=== PATIENT | female | born 1970 | race Caucasian/White ===

== ENCOUNTER → 2016-12-22 | Outpatient (CLI) | payer BC ==
--- NOTE | 2016-12-23 13:49 | MM ---
Reason for exam: screening (asymptomatic). Last mammogram was performed 1 year ago. History: Benign excisional biopsy of the right breast, June 2010. Took hormonal contraceptives for 4 years. Physical Findings: A clinical breast exam by your physician is recommended on an annual basis and results should be correlated with mammographic findings. MG 3D Screening Mammo W/Cad Bilateral CC and MLO view(s) were taken. Prior study comparison: December 11, 2015, bilateral MG 3d screening mammo w/cad. May 29, 2015, left breast MG diagnostic mammo LT w CAD. The breast tissue is extremely dense which could obscure a lesion on mammography. No significant changes when compared with prior studies. ASSESSMENT: Benign, BI-RAD 2 RECOMMENDATION: Routine screening mammogram of both breasts in 1 year.
== END ==
LOC: RADMAMWWP 08:41
PROVIDERS: ATTEND Obstetrics & Gynecology
DX: Z12.31 Encounter for screening mammogram for malignant neoplasm of breast (principal)
CPT/HCPCS: 77063; G0202

== ENCOUNTER → 2018-01-13 | Outpatient (CLI) | payer BC ==
--- NOTE | 2018-01-14 10:17 | MM ---
Reason for exam: screening (asymptomatic). Last mammogram was performed 1 year and 1 month ago. History: Benign excisional biopsy of the right breast, June 2010. Took hormonal contraceptives for 4 years. Physical Findings: A clinical breast exam by your physician is recommended on an annual basis and results should be correlated with mammographic findings. MG 3D Screening Mammo W/Cad Bilateral CC and MLO view(s) were taken. Prior study comparison: December 22, 2016, bilateral MG 3d screening mammo w/cad. December 11, 2015, bilateral MG 3d screening mammo w/cad. The breast tissue is heterogeneously dense. This may lower the sensitivity of mammography. Finding: Stable architectural distortion in the upper outer quadrant of the right breast consistent with known excisional biopsy. Previous mammotome biopsy in the right breast. There is a chronic nodularity in the left breast centrally. There is no discrete abnormality. ASSESSMENT: Benign, BI-RAD 2 RECOMMENDATION: Routine screening mammogram of both breasts in 1 year.
== END | disposition home or self-care (01) ==
LOC: RADMAMWWP 14:57
PROVIDERS: ATTEND Obstetrics & Gynecology
DX: Z12.31 Encounter for screening mammogram for malignant neoplasm of breast (principal)
CPT/HCPCS: 77063; 77067

== ENCOUNTER → 2019-03-15 | Outpatient (CLI) | payer BC ==
--- NOTE | 2019-03-15 08:55 | US ---
EXAMINATION TYPE: US transvaginal DATE OF EXAM: 03/15/2019 COMPARISON: NONE CLINICAL HISTORY: N94.10 Dyspareunia. Irregular menses x 1 year. Hx ablation 2001. Hx x 2 . TECHNIQUE: Transvaginal (TV). Date of LMP: 03/09/2019, G2G2 EXAM MEASUREMENTS: Uterus: 8.6 x 8.3 x 5.5 cm Endometrial Stripe: 0.5 cm Right Ovary: 2.4 x 1.6 x 1.3 cm Left Ovary: 2.4 x 1.3 x 1.1 cm 1. Uterus: Anteverted Right fibroid appearing lesion = 3.4 x 3.4 x 3.5 cm. In [place] at ar ea, fluid collection seen = 1.0 x 0.9 x 0.6 cm 2. Endometrium: Limited visualization due to ablation. 3. Right Ovary: wnl 4. Left Ovary: wnl 5. Bilateral Adnexa: Cystic appearing lesion seen in right adnexal region = 1.7 x 1.2 x 1.3 cm 6. Posterior cul-de-sac: No free fluid IMPRESSION: 1. Heterogenous uterine myometrium with at least one circumscribed leiomyoma measuring 3.5 cm appeari ng intramural. 2. Small 1.0 cm fluid collection in the lower uterine segment at the site of prior scar like ly represents a seroma. 3. Paraovarian simple appearing right adnexal cyst. 4. Endometrial thickness is upper limits of normal for postablation measured about 0.5 cm.
--- NOTE | 2019-03-17 14:58 | MM ---
Reason for exam: screening (asymptomatic). Last mammogram was performed 1 year and 2 months ago. History: Benign excisional biopsy of the right breast, June 2010. Took hormonal contraceptives for 4 years. Physical Findings: A clinical breast exam by your physician is recommended on an annual basis and results should be correlated with mammographic findings. MG 3D Screening Mammo W/Cad Bilateral CC and MLO view(s) were taken. Prior study comparison: January 13, 2018, bilateral MG 3d screening mammo w/cad. December 22, 2016, bilateral MG 3d screening mammo w/cad. The breast tissue is heterogeneously dense. This may lower the sensitivity of mammography. Benign appearing calcifications in the right breast. Skin metalic density seen on exam of 2018 only is no longer seen. ASSESSMENT: Benign, BI-RAD 2 RECOMMENDATION: Routine screening mammogram of both breasts in 1 year.
== END | disposition home or self-care (01) ==
LOC: RADMAMWWP 07:51
PROVIDERS: ATTEND Family Medicine
DX: Z12.31 Encounter for screening mammogram for malignant neoplasm of breast (principal); D25.9 Leiomyoma of uterus, unspecified
CPT/HCPCS: 76830; 77063; 77067

== ENCOUNTER → 2019-07-10 | Outpatient (CLI) | payer BC ==
[2019-07-10 12:16] LABS: Basophils # (A) 0.1 k/uL (0-0.2); Basophils % (A) 1 %; Eosinophils # (A) 0.2 k/uL (0-0.7); Eosinophils % (A) 4 %; HCT 41.3 % (34.0-46.0); HGB 13.2 gm/dL (11.4-16.0); Lymphocytes # (A) 1.2 k/uL (1.0-4.8); Lymphocytes % (A) 24 %; MCH 30.9 pg (25.0-35.0); MCHC 32.1 g/dL (31.0-37.0); MCV 96.4 fL (80.0-100.0); Mean Platelet Volume 6.7; Monocytes # (A) 0.3 k/uL (0-1.0); Monocytes % (A) 7 %; Neutrophils # (A) 3.2 k/uL (1.3-7.7); Neutrophils % (A) 63 %; Platelet Count 221 k/uL (150-450); RBC 4.28 m/uL (3.80-5.40); RDW 13.2 % (11.5-15.5); WBC 5.1 k/uL (3.8-10.6)
[2019-07-10 12:42] LABS: African American GFR (CKD) >90 (>60 ml/min/1.73 sqM); Anion Gap 9 mmol/L; Blood Urea Nitrogen 10 mg/dL (7-17); Carbon Dioxide 25 mmol/L (22-30); Chloride 105 mmol/L (98-107); Glucose 79 mg/dL (74-99); Non-African American GFR(CKD) >90 (>60 ml/min/1.73 sqM); Potassium 4.6 mmol/L (3.5-5.1); Sodium 139 mmol/L (137-145)
== END | disposition home or self-care (01) ==
LOC: LABPAT 11:11
PROVIDERS: ATTEND Obstetrics & Gynecology Obstetrics
DX: Z01.812 Encounter for preprocedural laboratory examination (principal); N93.9 Abnormal uterine and vaginal bleeding, unspecified; R10.2 Pelvic and perineal pain
CPT/HCPCS: 36415; 80051; 82565; 82947; 84520; 85025; 87086

== ENCOUNTER 2019-07-18 05:59 | Day surgery (SDC) | payer BC ==
[2019-07-11 16:15] VITALS: BMI 30.2
[~2019-07-18 05:59] MED LIST: MIDAZOLAM 2 MG/2 ML VIAL IV PRN
[2019-07-18] MEDS: LACTATED RINGERS 1,000 ML IV SCH ×2 (06:46→07:44)
[2019-07-18] MEDS ORDERED: LIDOCAINE 1% 20 ML VIAL (10MG/ML) FOR IV START INTRADERMA ONE ×2 (06:46→07:06)
[2019-07-18] MEDS: SCOPOLAMINE 1.5MG/72HR PATCH TRANSDERM ONE ×2 (07:17→20:12)
[2019-07-18] MEDS: ONDANSETRON 4 MG/2 ML VIAL IVP ONE ×2 (07:17→22:28)
[2019-07-18] MEDS: DEXAMETHASONE SOD PHOSPHATE 10 MG/ML 1 ML VIAL IV ONE ×2 (07:17→20:11)
[2019-07-18] MEDS ORDERED: MIDAZOLAM 2 MG/2 ML VIAL ONE (07:39)
[2019-07-18] MEDS ORDERED: LIDOCAINE 1% INJ 10MG/ML (20 ML MDV) ONE (07:39)
[2019-07-18] MEDS ORDERED: PROPOFOL 10 MG/ML 20 ML VIAL IV ONE (07:39)
[2019-07-18] MEDS ORDERED: NEOSTIGMINE 1 MG/ML 10 ML VIAL ONE (07:39)
[2019-07-18] MEDS ORDERED: fentaNYL (PF) 50 MCG/ML 2 ML AMP ONE (07:39)
[2019-07-18] MEDS ORDERED: ROCURONIUM BROMIDE 10 MG/ML 10 ML VIAL IV ONE (07:39)
[2019-07-18] MEDS ORDERED: ONDANSETRON 4 MG/2 ML VIAL ONE (07:39)
[2019-07-18] MEDS ORDERED: GLYCOPYRROLATE 0.2 MG/ML 2 ML VIAL ONE (07:39)
[2019-07-18] MEDS ORDERED: BUPIVACAINE (PF) 0.25% 30 ML VIAL SQ ONE (08:14)
[2019-07-18] MEDS: HYDROmorphone 0.5 MG/0.5 ML SYRINGE IVP PRN ×2 (09:55→10:02)
[2019-07-18] MEDS ORDERED: ACETAMINOPHEN IV (For NPO) 1,000 MG in EMPTY BAG 1 BAG IVPB ONE (10:06)
[2019-07-18] MEDS ORDERED: Acetaminophen-Codeine 300-30mg TAB PO PRN (10:06)
[2019-07-18] MEDS ORDERED: IBUPROFEN IV 800 MG in SODIUM CHLORIDE 0.9% 250 ML IV ONE (10:08)
--- NOTE | 2019-07-18 10:21 | P.OP ---
Date of Procedure: 07/18/19 Preoperative Diagnosis: menorrhagia, uterine fibroids, endometrioma Procedure(s) Performed: Robotic-assisted vaginal hysterotomy, diagnostic cystoscopy Anesthesia: NADERA Surgeon: Betzy Cook Petroleum Engineer #1: Loki Aldana Estimated Blood Loss (ml): 20 IV fluids (ml): 700 Urine output (ml): 350 Pathology: other (uterus fallopian tubes, ovary) Condition: stable Disposition: PACU Indications for Procedure: heavy menstrual bleeding uterine fibroid, endometrioma Operative Findings: enlarged globular uterus, normal ovaries b/l endometriosis noted in the posterior cul de sac Description of Procedure: Patient is seen in the preoperative area and informed consent is obtained and all questions are answered. Patient was taken back to the operating suite where general anesthesia was obtained without difficulty by the anesthesia department. She was then prepped and draped in the normal sterile fashion in the dorsal lithotomy position. Galeana catheter was then placed under sterile technique. A weighted speculum was placed in the posterior vaginal vault the anterior lip of the cervix is visualized and grasped with a single-tooth tenaculum. The cervix was then serially dilated and a Admaxim uterine manipulator was advanced without difficulty. All instrument removed from the patient's vaginal vault. Attention was then turned to the patient's abdomen where approximately 2 finger breaths above the umbilicus a small skin incision is made. Through this incision the Veress needles placed. Once the Veress needle was deemed to be in the appropriate position with a drop of CO2 pressure, CO2 insufflation was allowed to occur. Approximately 3 L of gas or used to obtain pneumoperitoneum, at this time the incision was elongated to 12 mm and a 12 mm trocar and sleeve with the laparoscope in place. The pneumoperitoneum under direct visualization. The above-noted findings were visualized. At this time the additional ports that were placed at 10 cm lateral and 3 cm inferior midline port 8 mm operative ports and the da Rachael machine. In the left upper quadrant a 12 mm trocar and sleeve is placed under direct visualization. Placement of the bipolar forceps is attention was then turned the patient's left adnexa the utero-ovarian ligament was visualized regular distally approximately divided. Prior to this the mesosalpinx had been coagulated and transected the fallopian tube was intact. Round ligament was then visualized and distally approximately divided hemostasis was appreciated. The bladder flap was then created using sharp and blunt dissection. At this time the descending branch the uterine artery was visualized coagulated distally and proximally and divided hemostasis was appreciated once again. Attention turned to the right adnexa the right uterine ovarian ligament was visualized coagulated distally approximately this continued through the broad and toward the round which was coagulated distally and proximally and divided. The right fallopian tube was taken in addition. The bladder flap on the right was then created using sharp and blunt dissection. The ascending branch of the uterine artery was then visualized on the right coagulated distally and proximally and divided. A Ray-Sweetie was then placed in the abdomen is means to further dissect the bladder away from the operating field. This was then removed. At this time the only remaining attachment was a vaginal attachment therefore colpotomy incision was made and circumference of fashion uterus and fallopian tubes were delivered through the vaginal opening. The pelvis was then copiously irrigated hemostasis was appreciated. The vaginal cuff was closed with 0 Vicryl in interrupted fashion. For sutures were used to obtain closure. FloSeal was then placed across the v aginal cuff. At this time all instruments removed from the patient's abdomen and the da Rachael was undocked in the usual fashion. Attention turned the patient's Galeana which was removed without difficulty. And a cystoscopy was performed. The cystoscope was placed through the urethra and toward the bladder bladder bubbles noted both ureteral orifices were spilling clear yellow urine. Patient tolerated procedure well all counts are correct 2 patient was awoken from general anesthesia and taken the recovery room in stable condition.
[2019-07-18] MEDS: Acetaminophen-Codeine 300-30mg TAB PO PRN ×2 (13:20→17:19)
[2019-07-18] MEDS: IBUPROFEN 600 MG TAB PO PRN (18:38)
[2019-07-18 20:53] VITALS: RESP 16
[2019-07-19] MEDS: IBUPROFEN 600 MG TAB PO PRN ×2 (04:23→11:27)
[2019-07-19] MEDS ORDERED: ENOXAPARIN 40 MG/0.4 ML SYRINGE SQ STA (07:52)
--- NOTE | 2019-07-19 08:00 | P.DS ---
Providers Date of admission: 07/18/2019 Expected date of discharge: 07/19/19 Attending physician: Betzy Cook Primary care physician: Gilberto Perry - Discharge Diagnosis(es) (1) Menorrhagia Current Visit: Yes Status: Acute (2) Dysmenorrhea Current Visit: Yes Status: Acute (3) Endometriosis Current Visit: Yes Status: Acute Hospital Course: This pleasant 48-year-old female presented yesterday for scheduled robotic-ass isted vaginal hysterectomy with diagnostic cystoscopy. Patient had an endometrial ablation done years ago and has noted increasing cyclic pelvic pain over the last few years worsening in nature. Patient desires definitive treatment and therefore robotic-assisted vaginal hysterectomy was scheduled. Ovarian conservation was discussed in detail and patient agreed. Patient was taken back to the operating suite and this surgery was performed without difficulty. Multiple endometriosis implants were noted posterior cul-de-sac. Cystoscopy was normal in nature. On this postop day #1 patient is feeling well she states her pain is well-controlled. The Galeana catheter was removed this morning and she is awaiting a void. She denies concerns and states she is ready for discharge home. Of note patient has a history of a DVT with a protein C abnormality therefore Lovenox 40 mg subcu daily will be given until she we can restart her eliquis. Patient Condition at Discharge: Good Plan - Discharge Summary Discharge Rx Participant: Yes New Discharge Prescriptions: No Action Rivaroxaban [Xarelto] 20 mg PO DAILY Discharge Medication List Rivaroxaban [Xarelto] 20 mg PO DAILY 07/11/19 [History] Follow up Appointment(s)/Referral(s): Betzy Cook DO [Doctor of Osteopathic Medicine] - 2 Weeks Patient Instructions/Handouts: Laparoscopic Hysterectomy (DC), Laparoscopic Hysterectomy (GEN) Activity/Diet/Wound Care/Special Instructions: No tub baths for 4 weeks, no intercourse for 6-8 weeks as instructed at postop appointment. Patient may experience vaginal bleeding after 2 weeks, this is a normal part of healing. Discharge Disposition: HOME SELF-CARE
[2019-07-19 10:02] VITALS: BP 113/72; PULSE 80; TEMP 98.2
[2019-07-19 11:00] LABS: Basophils % (A) 0 %; Eosinophils # (A) 0.1 k/uL (0-0.7); Eosinophils % (A) 1 %; HCT 34.7 % (34.0-46.0); HGB 11.8 gm/dL (11.4-16.0); Lymphocytes # (A) 1.8 k/uL (1.0-4.8); Lymphocytes % (A) 18 %; MCH 32.2 pg (25.0-35.0); MCHC 34.1 g/dL (31.0-37.0); MCV 94.5 fL (80.0-100.0); Mean Platelet Volume 6.1; Monocytes # (A) 0.5 k/uL (0-1.0); Monocytes % (A) 6 %; Neutrophils # (A) 7.1 k/uL (1.3-7.7); Neutrophils % (A) 74 %; Platelet Count 236 k/uL (150-450); RBC 3.67 m/uL (3.80-5.40); WBC 9.5 k/uL (3.8-10.6)
== END 2019-07-19 11:40 | disposition home or self-care (01) ==
LOC: OR 05:59 → 6PED 09:40 → OR 07-19 11:40
PROVIDERS: ATTEND Obstetrics & Gynecology Obstetrics
DX: D25.1 Intramural leiomyoma of uterus (principal); N80.0 Endometriosis of uterus; N72 Inflammatory disease of cervix uteri; N80.3 Endometriosis of pelvic peritoneum; N83.8 Other noninflammatory disorders of ovary, fallopian tube and broad ligament; Z79.01 Long term (current) use of anticoagulants; J45.909 Unspecified asthma, uncomplicated; D68.59 Other primary thrombophilia; Z98.891 History of uterine scar from previous surgery; Z98.890 Other specified postprocedural states; Z91.040 Latex allergy status; Z82.49 Family history of ischemic heart disease and other diseases of the circulatory system; Z86.718 Personal history of other venous thrombosis and embolism; Z86.711 Personal history of pulmonary embolism
CPT/HCPCS: 81025; 85025; 86850; 86900; 86901; 88307

== ENCOUNTER → 2020-04-12 | Outpatient (CLI) | payer BC ==
--- NOTE | 2020-04-16 07:15 | MM ---
Reason for exam: screening (asymptomatic). Last mammogram was performed 1 year and 1 month ago. History: Benign excisional biopsy of the right breast, June 2010. Took hormonal contraceptives for 4 years. Physical Findings: A clinical breast exam by your physician is recommended on an annual basis and results should be correlated with mammographic findings. MG 3D Screening Mammo W/Cad Bilateral CC and MLO view(s) were taken. Prior study comparison: March 15, 2019, bilateral MG 3d screening mammo w/cad. January 13, 2018, bilateral MG 3d screening mammo w/cad. The breast tissue is heterogeneously dense. This may lower the sensitivity of mammography. Benign appearing calcifications in the right breast. No significant changes when compared with prior studies. ASSESSMENT: Benign, BI-RAD 2 RECOMMENDATION: Routine screening mammogram of both breasts in 1 year.
== END | disposition home or self-care (01) ==
LOC: RADMAMWWP 16:07
PROVIDERS: ATTEND Obstetrics & Gynecology Obstetrics
DX: Z12.31 Encounter for screening mammogram for malignant neoplasm of breast (principal)
CPT/HCPCS: 77063; 77067

== ENCOUNTER → 2021-02-14 | Outpatient (CLI) | payer BC ==
--- NOTE | 2021-02-14 08:57 | US ---
EXAMINATION TYPE: US abdomen complete DATE OF EXAM: 02/14/2021 COMPARISON: NONE CLINICAL HISTORY: R11.0 Nausea. Pt states nausea on/off x 1 year EXAM MEASUREMENTS: Liver Length: 15.4 cm Gallbladder Wall: 0.2 cm CBD: 0.4 cm Spleen: 11.0 cm Right Kidney: 9.9 x 3.9 x 4.4 cm Left Kidney: 10.5 x 4.4 x 4.7 cm Pancreas: Partially obscured by overlying bowel gas Liver: Visualized portions appeared wnl partially obscured. Gallbladder: wnl Evidence for sonographic Perkins's sign: No CBD: wnl Spleen: wnl Right Kidney: wnl, lower pole obscured due to overlying bowel gas Left Kidney: wnl, lower pole obscured due to overlying bowel gas Upper IVC: wnl Abd Aorta: wnl IMPRESSION: 1. The lower poles of the kidneys are poorly visualized due to overlying bowel gas. No definite evide nce of renal calculi or hydronephrosis. 2. No gallstones. No sludge or pericholecystic fluid. Gallbladder wall is within normal limits. 3. Visualized portions of the liver are unremarkable. The liver is partially obscured. 4. The pancreas is partially obscured due to overlying bowel gas.
== END | disposition home or self-care (01) ==
LOC: RADUSWWP 06:58
PROVIDERS: ATTEND Family Medicine
DX: R11.0 Nausea (principal)
CPT/HCPCS: 76700

== ENCOUNTER 2021-05-07 09:16 | Day surgery (SDC) | payer BC ==
[2021-05-02 10:46] VITALS: BMI 30.4
[~2021-05-07 09:16] MED LIST changes: +LACTATED RINGERS 1,000 ML IV SCH; -MIDAZOLAM 2 MG/2 ML VIAL IV PRN
[2021-05-07 09:55] VITALS: TEMP 97.7
[2021-05-07] MEDS ORDERED: LIDOCAINE 1% INJ 10MG/ML (20 ML MDV) ONE (10:25)
[2021-05-07] MEDS ORDERED: PROPOFOL 10 MG/ML 20 ML VIAL IV ONE (10:25)
--- NOTE | 2021-05-07 10:49 | P.PCN ---
Date of Procedure: 05/07/21 Procedure(s) Performed: Brief history: Patient is a pleasant 50-year-old pleasant white female scheduled for an elective upper endoscopy as well as colonoscopy as a part of evaluation of chronic nausea vomiting for the last 2 months duration. Also has prior history of colon polyps. Procedure performed: Esophagogastroduodenoscopy with biopsy Colonoscopy Preoperative diagnosis: Chronic nausea vomiting of 2 months duration History of colon polyps Anesthesia: MAC Procedure: After informed consent was obtained from the patient was brought into the endoscopy unit and IV sedation was administered by anesthesia under continuous monitoring. Initially upper endoscopy was done. The Olympus GF 160 video endoscope was inserted inserted into the mouth and esophagus intubated without any difficulty and was gradually advanced into the stomach and duodenum and carefully examined. The bulb and second part of the duodenum appeared normal. Biopsies were done from the duodenum to rule out celiac disease. The scope was then withdrawn into the stomach adequately insufflated with air and upon careful examination the antrum had mild gastritis and biopsies were done from this area. The body, cardia and fundus appeared normal. The scope was then withdrawn into the esophagus. The GE junction was located at 40 cm to the incisors. It appeared regular with no erythema erosions or ulcerations. Rest of the esophagus appeared normal. as his were done from the distal esophagus. Patient tolerated the procedure well. At this time the patient continued to remain sedation. Initial digital rectal examination was normal. Olympus CF 160 video colonoscope was then inserted into the rectum and gradually advanced to the cecum without any difficulty. Careful examination was performed as the scope was gradually being withdrawn. The prep was excellent. The cecum, ascending colon, transverse colon, descending colon, sigmoid colon and rectum appeared normal. scattered sigmoid diverticulosis. Retroflexion was performed in the rectum and no lesions were noted. Patient tolerated the procedure well. Impression: 1. Upper endoscopy revealed mild antral gastritis but no evidence of esophagitis or peptic ulcer 2. Colonoscopy is within normal limits with no evidence of colitis or color ectal neoplasia.. Scattered sigmoid diverticulosis Recommendations: Findings of this examination were discussed with the patient as well as her family. She was advised to follow with the biopsy results. She can have a repeat colonoscopy in 10 years.]
[2021-05-07 10:53] VITALS: PULSE 66; RESP 16
[2021-05-07 11:06] VITALS: BP 105/69
== END 2021-05-07 11:34 | disposition home or self-care (01) ==
LOC: ORWHC2ENDO 09:16
PROVIDERS: ATTEND Internal Medicine Gastroenterology
DX: K29.50 Unspecified chronic gastritis without bleeding (principal); K57.30 Diverticulosis of large intestine without perforation or abscess without bleeding; K20.90 Esophagitis, unspecified without bleeding; Z86.010 Personal history of colon polyps; Z79.01 Long term (current) use of anticoagulants; Z91.040 Latex allergy status
CPT/HCPCS: 45378; 43239; 88305; J2001; J2704

== ENCOUNTER → 2021-08-13 | Outpatient (CLI) | payer BC ==
--- NOTE | 2021-08-18 10:57 | MM ---
Reason for exam: screening (asymptomatic). Last mammogram was performed 1 year and 4 months ago. History: Benign excisional biopsy of the right breast, June 2010. Took hormonal contraceptives for 4 years. Physical Findings: A clinical breast exam by your physician is recommended on an annual basis and results should be correlated with mammographic findings. MG 3D Screening Mammo W/Cad Bilateral CC and MLO view(s) were taken. Prior study comparison: April 12, 2020, bilateral MG 3d screening mammo w/cad. March 15, 2019, bilateral MG 3d screening mammo w/cad. The breast tissue is heterogeneously dense. This may lower the sensitivity of mammography. Post excisional changes n the right. No significant changes when compared with prior studies. ASSESSMENT: Benign, BI-RAD 2 RECOMMENDATION: Routine screening mammogram of both breasts in 1 year.
== END | disposition home or self-care (01) ==
LOC: RADMAMWWP 07:16
PROVIDERS: ATTEND Obstetrics & Gynecology
DX: Z12.31 Encounter for screening mammogram for malignant neoplasm of breast (principal)
CPT/HCPCS: 77063; 77067

== ENCOUNTER → 2022-08-31 | Outpatient (CLI) | payer BC ==
--- NOTE | 2022-09-01 08:42 | MM ---
Reason for Exam: Screening (asymptomatic). Last mammogram was performed 1 year(s) and 1 month(s) ago. Patient History: Menarche at age 13. First Full-Term at age 22. Hysterectomy at age 48. Patient used Hormonal Contraceptives for 4 years. 06/2010, Benign Excisional Biopsy on the right side. Risk Values: Dina 5 year model risk: 1.1%. NCI Lifetime model risk: 9.3%. Prior Study Comparison: 03/15/2019 Bilateral Screening Mammogram, [facility]. 04/12/2020 Bilateral Screening Mammogram, [facility]. 08/13/2021 Bilateral Screening Mammogram, [facility]. Tissue Density: The breast tissue is heterogeneously dense. This may lower the sensitivity of mammography. Findings: Analyzed By CAD. There is no suspicious group of microcalcifications or new suspicious mass in either breast. Postexcisional changes in the right breast. Overall Assessment: Benign, BI-RAD 2 Management: Screening Mammogram of both breasts in 1 year. A clinical breast exam by your physician is recommended on an annual basis and results should be correlated with mammographic findings. Electronically signed and approved by: Austyn Grijalva D.O.
== END | disposition home or self-care (01) ==
LOC: RADMAMWWP 07:37
PROVIDERS: ATTEND Obstetrics & Gynecology Obstetrics
DX: Z12.31 Encounter for screening mammogram for malignant neoplasm of breast (principal); Z98.890 Other specified postprocedural states
CPT/HCPCS: 77063; 77067

== ENCOUNTER → 2023-05-26 | Outpatient (CLI) | payer BC ==
--- NOTE | 2023-05-26 12:17 | XR ---
EXAMINATION TYPE: XR chest 2V DATE OF EXAM: 05/26/2023 COMPARISON: NONE TECHNIQUE: PA and lateral views submitted. HISTORY: Cough FINDINGS: The lungs are clear and there is no pneumothorax, pleural effusion, or focal pneumonia. Heart size normal and no overt failure. Osseous structures demonstrate hypertrophic and degenerative changes of the spine. IMPRESSION: 1. No acute process.
== END | disposition home or self-care (01) ==
LOC: RADXRMAIN 11:46
PROVIDERS: ATTEND Family Medicine
DX: R05.9 Cough, unspecified (principal)
CPT/HCPCS: 71046

== ENCOUNTER 2023-05-28 21:27 | Emergency (ER) | payer BC ==
[2023-05-28 21:50] VITALS: TEMP 98.7
[2023-05-28 22:11] LABS: Basophils % (A) 0 %; Eosinophils # (A) 0.1 k/uL (0-0.7); Eosinophils % (A) 1 %; HCT 40.6 % (34.0-46.0); HGB 13.6 gm/dL (11.4-16.0); Lymphocytes % (A) 8 %; MCH 30.8 pg (25.0-35.0); MCHC 33.5 g/dL (31.0-37.0); Mean Platelet Volume 8.3; Monocytes # (A) 0.5 k/uL (0-1.0); Monocytes % (A) 5 %; Neutrophils # (A) 10.2 k/uL (1.3-7.7); Neutrophils % (A) 86 %; Platelet Count 210 k/uL (150-450); RBC 4.41 m/uL (3.80-5.40); RDW 13.2 % (11.5-15.5); WBC 11.9 k/uL (3.8-10.6)
[2023-05-28 22:21] LABS: INR 1.1 (<1.2); Partial Thromboplastin Time 23.3 sec (22.0-30.0)
[2023-05-28 22:24] LABS: ALT 30 U/L (4-34); AST 30 U/L (14-36); African American GFR (CKD) >90 (>60 ml/min/1.73 sqM); Alkaline Phosphatase 66 U/L (38-126); Anion Gap 12 mmol/L; Blood Urea Nitrogen 15 mg/dL (7-17); Carbon Dioxide 18 mmol/L (22-30); Chloride 105 mmol/L (98-107); Glucose 125 mg/dL (74-99); Non-African American GFR(CKD) >90 (>60 ml/min/1.73 sqM); Potassium 4.1 mmol/L (3.5-5.1); Sodium 135 mmol/L (137-145); Total Bilirubin 0.4 mg/dL (0.2-1.3); Total Protein 6.8 g/dL (6.3-8.2)
[2023-05-28 22:31] LABS: Prothrombin Time 11.5 sec (10.0-12.5)
[2023-05-28] MEDS ORDERED: SODIUM CHLORIDE 0.9% 1,000 ML IV STA (22:51)
[2023-05-28] MEDS ORDERED: RIVAROXABAN 10 MG TAB PO SCH ×3 (23:15→23:30)
[2023-05-28] MEDS ORDERED: SODIUM CHLORIDE 0.9% 1,000 ML IV ONE (23:50)
[2023-05-28 23:59] VITALS: RESP 18
--- NOTE | 2023-05-29 01:33 | ED ---
General Adult HPI - General Chief complaint: Shortness of Breath Stated complaint: SOB Time Seen by Provider: 05/28/23 21:47 Source: patient, EMS Mode of arrival: EMS Limitations: no limitations - History of Present Illness Initial comments: 52-year-old female with a past medical history significant for protein C deficiency presenting to the ED with a chief complaint of dyspnea. Patient states was diagnosed with COVID 3 weeks ago. Reports that since this diagnosis, as had difficulties with dyspnea, cough, congestion, and chest tightness. Today, reports that she was playing with her dogs. After playing with her dogs patient reports that she got so short of breath that she was unable to get up. At this time, patient reports symptoms improved compared to earlier. Denies fever. Patient is on Xarelto 20 mg. - Related Data Home Medications Medication Instructions Recorded Confirmed Rivaroxaban [Xarelto] 20 mg PO DAILY 07/11/19 05/07/21 Allergies Allergy/AdvReac Type Severity Reaction Status Date / Time latex Allergy Dyspnea, Verified 05/28/23 21:36 RASH,SWELLING Review of Systems ROS Statement: Those systems with pertinent positive or pertinent negative responses have been documented in the HPI. ROS Other: All systems not noted in ROS Statement are negative. Past Medical History Past Medical History: Blood Disorder, Deep Vein Thrombosis (DVT) Additional Past Medical History / Comment(s): low protein C. seaonal allergies History of Any Multi-Drug Resistant Organisms: None Reported Past Surgical History: Section, Hysterectomy, Tonsillectomy, Uterine Ablation Additional Past Surgical History / Comment(s): C/S x2 Past Anesthesia/Blood Transfusion Reactions: No Reported Reaction, Previous Problems w/ Anesthesia, Family History of Problems w/ Anesthesia, Motion Sickness Additional Past Anesthesia/Blood Transfusion Reaction / Comment(s): pt and daughter slow to wake up Past Psychological History: No Psychological Hx Reported Smoking Status: Never smoker General Exam Limitations: no limitations General appearance: alert, in no apparent distress Neck exam: Present: normal inspection Respiratory exam: Present: normal lung sounds bilaterally, other (No respiratroy ) Cardiovascular Exam: Present: regular rate, normal rhythm GI/Abdominal exam: Present: soft Neurological exam: Present: alert, oriented X3 Skin exam: Present: warm, dry Course Vital Signs 05/28/23 05/28/23 05/28/23 21:30 21:37 23:45 Temperature 98.7 F Pulse Rate 51 L 44 L Respiratory 18 22 18 Rate Blood Pressure 163/99 149/90 O2 Sat by Pulse 98 95 Oximetry Medical Decision Making - Medical Decision Making Was pt. sent in by a medical professional or institution ([facility]AL[facility] Johnson, [employer], urgent care, hospital, or shelter...) When possible be specific @ -No Did you speak to anyone other than the patient for history (EMS, parent, family, police, friend...)? What history was obtained from this source @ -No Did you review nursing and triage notes (agree or disagree)? Why? @ -I reviewed and agree with nursing and triage notes Were old charts reviewed (outside hosp., previous admission, EMS record, old EKG, old radiological studies, urgent care reports/EKG's, shelter records)? Report findings @ -No old charts were reviewed Differential Diagnosis (chest pain, altered mental status, abdominal pain women, abdominal pain men, vaginal bleeding, weakness, fever, dyspnea, syncope, headache, dizziness, GI bleed, back pain, seizure, CVA, palpatations, mental health, musculoskeletal)? @ -Differential Dyspnea: Coronary syndrome, arrhythmia, tamponade, asthma, COPD, pulmonary embolism, pneumonia, pneumothorax, pulmonary effusion, anaphylaxis, diabetic ketoacidosis, flailed chest, pulmonary contusion, diaphragmatic rupture, anemia, ne uromuscular, this is not meant to be an all-inclusive list. EKG interpreted by me (3pts min.). @ -EKG shows a sinus bradycardia at 45 beats minute without acute ST or T-wave changes. DC 183, QRS 88, QT/QTc 446/401. X-rays interpreted by me (1pt min.). @ -None done CT interpreted by me (1pt min.). @ -None done U/S interpreted by me (1pt. min.). @ -None done What testing was considered but not performed or refused? (CT, X-rays, U/S, labs)? Why? @ -D-dimer was considered to rule out PE however patient is RT on throughout the 20 mg, is not having any shortness of breath right now and vital signs show the patient is nontachypneic, non-tachycardic. Chest x-ray was considered however patient had clear lung sounds on exam and otherwise had no reports of fever or concerns for pneumonia. What meds were considered but not given or refused? Why? @ -None Did you discuss the management of the patient with other professionals (professionals i.e. , PA, [employer], lab, RT, psych nurse, director social service, product responsibility liaison, teacher, first aid officer, onsite case manager)? Give summary @ -No Was smoking cessation discussed for >3mins.? @ -No Was critical care preformed (if so, how long)? @ -No Were there social determinants of health that impacted care today? How? (Homelessness, low income, unemployed, alcoholism, drug addiction, transportation, low edu. Level, literacy, decrease access to med. care, half-way, rehab)? @ -No Was there de-escalation of care discussed even if they declined (Discuss DNR or withdrawal of care, Hospice)? DNR status @ -No What co-morbidities impacted this encounter? (DM, HTN, Smoking, COPD, CAD, Cancer, CVA, ARF, Chemo, Hep., AIDS, mental health diagnosis, sleep apnea, morbid obesity)? @ -None Was patient admitted / discharged? Hospital course, mention meds given and route, prescriptions, significant lab abnormalities, going to OR and other pertinent info. @ -Discharge 82-year-old female presenting to the ED with 3 week history of chest tightness, cough, and intermittent chest pain with worsening of dyspnea tonight. Laboratory studies significant for an elevated white blood cell count 11.9 with elevated neutrophils at 10.2. Lactic acid was elevated at 3.3. Chemistry panel unremarkable. Patient did receive 2 L of IV fluids here in the ED. Lactic acid returned to normal values. Fine 2 negative. During patient's stay in the ED had no more episodes of dyspnea and reports that she is feeling well compared to earlier. Patient discharged home in stable condition. Discussed return precautions patient family who verbalizes agreement. Undiagnosed new problem with uncertain prognosis? @ -No Drug Therapy requiring intensive monitoring for toxicity (Heparin, Nitro, Insulin, Cardizem)? @ -No Were any procedures done? @ -No Diagnosis/symptom? @ -Episode of dyspnea, history of COVID Acute, or Chronic, or Acute on Chronic? @ -Acute Uncomplicated (without systemic symptoms) or Complicated (systemic symptoms)? @ -Uncomplicated Side effects of treatment? @ -No Exacerbation, Progression, or Severe Exacerbation? @ -No Poses a threat to life or bodily function? How? (Chest pain, USA, OR, pneumonia, PE, COPD, DKA, ARF, appy, cholecystitis, CVA, Diverticulitis, Homicidal, Suicidal, threat to staff... and all critical care pts) @ -No - Lab Data Result diagrams: 05/28/23 21:45 05/28/23 21:45 Lab Results 05/28/23 05/28/23 05/28/23 Range/Units 21:45 21:45 21:45 WBC 11.9 H (3.8-10.6) k/uL RBC 4.41 (3.80-5.40) m/uL Hgb 13.6 (11.4-16.0) gm/dL Hct 40.6 (34.0-46.0) % MCV 92.0 (80.0-100.0) fL MCH 30.8 (25.0-35.0) pg MCHC 33.5 (31.0-37.0) g/dL RDW 13.2 (11.5-15.5) % Plt Count 210 (150-450) k/uL MPV 8.3 Neutrophils % 86 % Lymphocytes % 8 % Monocytes % 5 % Eosinophils % 1 % Basophils % 0 % Neutrophils # 10.2 H (1.3-7.7) k/uL Lymphocytes # 1.0 (1.0-4.8) k/uL Monocytes # 0.5 (0-1.0) k/uL Eosinophils # 0.1 (0-0.7) k/uL Basophils # 0.0 (0-0.2) k/uL PT 11.5 (10.0-12.5) sec INR 1.1 (<1.2) APTT 23.3 (22.0-30.0) sec Sodium 135 L (137-145) mmol/L Potassium 4.1 (3.5-5.1) mmol/L Chloride 105 (98-107) mmol/L Carbon Dioxide 18 L (22-30) mmol/L Anion Gap 12 mmol/L BUN 15 (7-17) mg/dL Creatinine 0.63 (0.52-1.04) mg/dL Est GFR (CKD-EPI)AfAm >90 (>60 ml/min/1.73 sqM) Est GFR (CKD-EPI)NonAf >90 (>60 ml/min/1.73 sqM) Glucose 125 H (74-99) mg/dL Lactic Ac Sepsis Rflx Plasma Lactic Acid Ricki (0.7-2.0) mmol/L Calcium 9.0 (8.4-10.2) mg/dL Total Bilirubin 0.4 (0.2-1.3) mg/dL AST 30 (14-36) U/L ALT 30 (4-34) U/L Alkaline Phosphatase 66 (38-126) U/L Troponin I (0.000-0.034) ng/mL Total Protein 6.8 (6.3-8.2) g/dL Albumin 4.0 (3.5-5.0) g/dL 05/28/23 05/28/23 05/28/23 Range/Units 21:45 21:45 22:29 WBC (3.8-10.6) k/uL RBC (3.80-5.40) m/uL Hgb (11.4-16.0) gm/dL Hct (34.0-46.0) % MCV (80.0-100.0) fL MCH (25.0-35.0) pg MCHC (31.0-37.0) g/dL RDW (11.5-15.5) % Plt Count (150-450) k/uL MPV Neutrophils % % Lymphocytes % % Monocytes % % Eosinophils % % Basophils % % Neutrophils # (1.3-7.7) k/uL Lymphocytes # (1.0-4.8) k/uL Monocytes # (0-1.0) k/uL Eosinophils # (0-0.7) k/uL Basophils # (0-0.2) k/uL PT (10.0-12.5) sec INR (<1.2) APTT (22.0-30.0) sec Sodium (137-145) mmol/L Potassium (3.5-5.1) mmol/L Chloride (98-107) mmol/L Carbon Dioxide (22-30) mmol/L Anion Gap mmol/L BUN (7-17) mg/dL Creatinine (0.52-1.04) mg/dL Est GFR (CKD-EPI)AfAm (>60 ml/min/1.73 sqM) Est GFR (CKD-EPI)NonAf (>60 ml/min/1.73 sqM) Glucose (74-99) mg/dL Lactic Ac Sepsis Rflx Y Plasma Lactic Acid Ricki 3.3 H* (0.7-2.0) mmol/L Calcium (8.4-10.2) mg/dL Total Bilirubin (0.2-1.3) mg/dL AST (14-36) U/L ALT (4-34) U/L Alkaline Phosphatase (38-126) U/L Troponin I <0.012 (0.000-0.034) ng/mL Total Protein (6.3-8.2) g/dL Albumin (3.5-5.0) g/dL 05/29/23 05/29/23 Range/Units 01:20 01:20 WBC (3.8-10.6) k/uL RBC (3.80-5.40) m/uL Hgb (11.4-16.0) gm/dL Hct (34.0-46.0) % MCV (80.0-100.0) fL MCH (25.0-35.0) pg MCHC (31.0-37.0) g/dL RDW (11.5-15.5) % Plt Count (150-450) k/uL MPV Neutrophils % % Lymphocytes % % Monocytes % % Eosinophils % % Basophils % % Neutrophils # (1.3-7.7) k/uL Lymphocytes # (1.0-4.8) k/uL Monocytes # (0-1.0) k/uL Eosinophils # (0-0.7) k/uL Basophils # (0-0.2) k/uL PT (10.0-12.5) sec INR (<1.2) APTT (22.0-30.0) sec Sodium (137-145) mmol/L Potassium (3.5-5.1) mmol/L Chloride (98-107) mmol/L Carbon Dioxide (22-30) mmol/L Anion Gap mmol/L BUN (7-17) mg/dL Creatinine (0.52-1.04) mg/dL Est GFR (CKD-EPI)AfAm (>60 ml/min/1.73 sqM) Est GFR (CKD-EPI)NonAf (>60 ml/min/1.73 sqM) Glucose (74-99) mg/dL Lactic Ac Sepsis Rflx Plasma Lactic Acid Ricki 2.0 (0.7-2.0) mmol/L Calcium (8.4-10.2) mg/dL Total Bilirubin (0.2-1.3) mg/dL AST (14-36) U/L ALT (4-34) U/L Alkaline Phosphatase (38-126) U/L Troponin I <0.012 (0.000-0.034) ng/mL Total Protein (6.3-8.2) g/dL Albumin (3.5-5.0) g/dL Disposition Clinical Impression: Dyspnea Disposition: HOME SELF-CARE Condition: Good Additional Instructions: Please return to the Emergency Department if symptoms worsen or any other concerns. Is patient prescribed a controlled substance at d/c from ED?: No Referrals: Gilberto Perry MD [Primary Care Provider] - 1-2 days Time of Disposition: 02:41
[2023-05-29 02:57] VITALS: BP 162/99; PULSE 47
[2023-05-29] MEDS ORDERED: RIVAROXABAN 20 MG TAB PO SCH (20:00)
== END 2023-05-29 02:52 | disposition home or self-care (01) ==
LOC: EC 21:27
DX: R06.00 Dyspnea, unspecified (principal)
CPT/HCPCS: 36415; 80053; 83605; 84484; 85025; 85610; 85730; 93005; 96360; 96361; 99285

== ENCOUNTER → 2023-09-20 | Outpatient (CLI) | payer BC ==
--- NOTE | 2023-09-22 08:23 | MM ---
Reason for Exam: Screening (asymptomatic). Last mammogram was performed 1 year(s) and 1 month(s) ago. Patient History: Menarche at age 13. First Full-Term at age 22. Hysterectomy at age 48. Patient used Hormonal Contraceptives for 4 years. 06/2010, Benign Excisional Biopsy on the right side. Risk Values: Dina 5 year model risk: 1.1%. NCI Lifetime model risk: 9.1%. Prior Study Comparison: 04/12/2020 Bilateral Screening Mammogram, [facility]. 08/13/2021 Bilateral Screening Mammogram, [facility]. 08/31/2022 Bilateral MG 3D screening mammo w/cad, [facility]. Tissue Density: The breast tissue is heterogeneously dense. This may lower the sensitivity of mammography. Findings: Analyzed By CAD. There is no suspicious group of microcalcifications or new suspicious mass. Overall Assessment: Negative, BI-RAD 1 Management: Screening Mammogram of both breasts in [address] [facility] will attempt to contact patient to return for supplemental views and ultrasound if indicated. Patient should continue monthly self-breast exams. A clinical breast exam by your physician is recommended on an annual basis. This exam should not preclude additional follow-up of suspicious palpable abnormalities. Note on Dina scores and lifetime risk: 1. A Dina score greater than 3% is considered moderate risk. If this is the case, consider specialist referral to assess eligibility for a risk reducing agent. 2. If overall lifetime risk for the development of breast cancer is 20% or higher, the patient may qualify for future screening with alternating mammogram and breast MRI. Electronically signed and approved by: Angel Martinez DO
== END | disposition home or self-care (01) ==
LOC: RADMAMWWP 15:33
PROVIDERS: ATTEND Obstetrics & Gynecology Obstetrics
DX: Z12.31 Encounter for screening mammogram for malignant neoplasm of breast (principal)
CPT/HCPCS: 77063; 77067

== ENCOUNTER → 2024-06-21 | Outpatient (CLI) | payer BC ==
--- NOTE | 2024-06-21 10:09 | CT ---
EXAMINATION TYPE: CT brain wo con DATE OF EXAM: 06/21/2024 8:31 AM COMPARISON: None. CLINICAL INDICATION: Female, 53 years old with history of R51.9 HEADACHE, headaches TECHNIQUE: CT of the brain is performed utilizing 3 mm thick sections through the posterior fossa and 3 mm thick sections through the remaining calvarium. Study is performed within 24 hours of arrival to the hospital. Contrast used: mL of , (none if empty) Oral contrast used: (none if empty) CT DLP: 1012.7 mGycm, Automated exposure control for dose reduction was used. FINDINGS: No abnormal hyperdensity is present to suggest an acute intracranial hemorrhage. No mass lesion is evident. No acute infarcts are evident. Ventricles and sulci are appropriate for the patient age. There is a retention cyst within the inferior left maxillary sinus. Some mucosal thickening and opaci fication is in the posterior right ethmoid air cells. Remaining paranasal sinuses and mastoid air dipak ls are clear. IMPRESSION: 1. No acute intracranial process. Follow up MRI can be performed as clinically indicated. [facility], , 06/21/2024 10:06 AM
== END | disposition home or self-care (01) ==
LOC: RADCTMAIN 08:16
PROVIDERS: ATTEND Family Medicine
DX: R51.9 Headache, unspecified (principal)
CPT/HCPCS: 70450

== ENCOUNTER → 2025-01-24 | Outpatient (CLI) | payer BC ==
--- NOTE | 2025-01-24 12:36 | MM ---
Reason for Exam: Screening (asymptomatic). Last mammogram was performed 1 year(s) and 4 month(s) ago. Patient History: Menarche at age 13. First Full-Term at age 22. Hysterectomy at age 48. Patient used Hormonal Contraceptives for 4 years. 06/2010, Benign Excisional Biopsy on the right side. Risk Values: Dina 5 year model risk: 1.2%. NCI Lifetime model risk: 8.8%. Prior Study Comparison: 08/13/2021 Bilateral Screening Mammogram, [facility]. 08/31/2022 Bilateral MG 3D screening mammo w/cad, [facility]. 09/20/2023 Bilateral MG 3D screening mammo w/cad, [facility]. Tissue Density: The breasts are heterogeneously dense, which may obscure small masses. Findings: Analyzed By CAD. Benign-appearing axillary lymph nodes are redemonstrated. There is no suspicious new group of microcalcifications or new suspicious mass in either breast. Overall Assessment: Negative, BI-RAD 1 Management: Screening Mammogram of both breasts in 1 year. . Patient should continue monthly self-breast exams. A clinical breast exam by your physician is recommended on an annual basis. This exam should not preclude additional follow-up of suspicious palpable abnormalities. Note on Dina scores and lifetime risk: 1. A Dina score greater than 3% is considered moderate risk. If this is the case, consider specialist referral to assess eligibility for a risk reducing agent. 2. If overall lifetime risk for the development of breast cancer is 20% or higher, the patient may qualify for future screening with alternating mammogram and breast MRI. [facility], , 01/24/2025 12:33 PM. Electronically signed and approved by: Bruno Carpenter M.D.
== END | disposition home or self-care (01) ==
LOC: RADMAMWWP 11:04
PROVIDERS: ATTEND Obstetrics & Gynecology Obstetrics
DX: Z12.31 Encounter for screening mammogram for malignant neoplasm of breast (principal); R92.333 Mammographic heterogeneous density, bilateral breasts; Z92.0 Personal history of contraception
CPT/HCPCS: 77063; 77067